=== PATIENT | male | born 1950 | race Caucasian/White ===

== ENCOUNTER 2017-03-27 08:53 | Emergency (ER) | payer MEDICARE, BC ==
[2017-03-27 09:25] VITALS: BP 124/69
--- NOTE | 2017-03-27 10:38 | CT ---
Abdomen Pelvis wo Cont Total DLP 1379 mGycm. INDICATION: left flank and left groin pain COMPARISON: CT 07/15/2010 FINDINGS: Small scattered air cysts in the lung bases. The cecum is in the right mid abdomen. Normal appendix. Fatty infiltration of the liver. No renal, ureteral, or bladder calculi. Tiny fat-containin g periumbilical hernia. Fat-containing right inguinal hernia. Moderate amount of stool throughout the colon. Degenerative changes in the spine. Exam otherwise unremarkable. IMPRESSION: No acute findings in the abdomen or pelvis
--- NOTE | 2017-03-27 10:53 | EDM.PDOC ---
ED HPI GENERAL MEDICAL PROBLEM - General Chief Complaint: Genitourinary Problem Stated Complaint: KIDNEY STONE SYMPTOMS Time Seen by Provider: 03/27/17 09:25 Source of Information: Reports: Patient, Family History Limitations: Reports: No Limitations - History of Present Illness INITIAL COMMENTS - FREE TEXT/NARRATIVE: pt arrived with pain in the left flank that started this weekend and now is much better. It was very severe but starting last nite is much better. Onset: Gradual Duration: Day(s): Location: Reports: Abdomen Associated Symptoms: Reports: Other ( severe left flank pain which has now gotten better. ) Left Flank Pain Score (Numeric/FACES): 3 - Related Data Allergies Allergy/AdvReac Type Severity Reaction Status Date / Time erythromycin base Allergy Nausea Verified 03/27/17 09:09 [From Erythrocin] Home Meds: Home Meds Aspirin 1,300 mg PO DAILY 03/27/17 [History] Metoprolol Succinate [Toprol XL] 1 tab PO DAILY 03/27/17 [History] PARoxetine [Paxil] 10 mg PO DAILY 03/27/17 [History] Past Medical History HEENT History: Reports: Impaired Vision Cardiovascular History: Reports: Arrhythmia Genitourinary History: Reports: Other (See Below) Other Genitourinary History: possible stone r side 8 years ago Musculoskeletal History: Reports: Osteoarthritis Psychiatric History: Reports: OCD - Infectious Disease History Infectious Disease History: Reports: Chicken Pox, Measles, Mumps - Past Surgical History HEENT Surgical History: Reports: Cataract Surgery, Other (See Below) Other HEENT Surgeries/Procedures: lens r eye GI Surgical History: Reports: Colonoscopy, Polypectomy Musculoskeletal Surgical History: Reports: Other (See Below) Other Musculoskeletal Surgeries/Procedures:: Disc surgery 1998 Social & Family History - Tobacco Use Smoking Status *Q: Never Smoker Second Hand Smoke Exposure: No - Caffeine Use Caffeine Use: Reports: Coffee, Tea - Recreational Drug Use Recreational Drug Use: No ED ROS GENERAL - Review of Systems Review Of Systems: See Below Constitutional: Reports: No Symptoms HEENT: Reports: No Symptoms Respiratory: Reports: No Symptoms Cardiovascular: Reports: No Symptoms Endocrine: Reports: No Symptoms GI/Abdominal: Reports: Abdominal Pain, Other ( left flank pain. ) : Reports: No Symptoms Musculoskeletal: Reports: Other ( left flank pain. ) Skin: Reports: No Symptoms ED EXAM, GI/ABD - Physical Exam Exam: See Below Text/Narrative:: pt arrived with left cva pain. he has had 3 days of pain and is now quite comfortable. General Appearance: Alert, Mild Distress, Other (pt is having very minor groin pain. He would rate it a 2. ) Ears: Normal TMs Nose: Normal Inspection Throat/Mouth: Normal Inspection Head: Atraumatic Neck: Normal Inspection Respiratory/Chest: No Respiratory Distress Cardiovascular: Regular Rate, Rhythm GI/Abdominal Exam: Soft, Non-Tender (Male) Exam: Deferred Rectal (Males) Exam: Deferred Extremities: Normal Inspection Neurological: Alert, Oriented, Normal Cognition Psychiatric: Normal Affect Course - Vital Signs Last Recorded V/S: Last Vital Signs Temp 36.2 C 03/27/17 09:23 Pulse 69 03/27/17 09:23 Resp 16 03/27/17 09:23 BP 124/69 03/27/17 09:23 Pulse Ox 98 03/27/17 09:23 - Orders/Labs/Meds Labs: Laboratory Tests 03/27/17 03/27/17 03/27/17 Range/Units 09:24 09:24 09:27 WBC 7.2 (4.5-11.0) K/uL RBC 5.17 (4.30-5.90) M/uL Hgb 15.6 H (12.0-15.0) g/dL Hct 46.2 (40.0-54.0) % MCV 89 (80-98) fL MCH 30 (27-31) pg MCHC 34 (32-36) % Plt Count 193 (150-400) K/uL Neut % (Auto) 74 H (36-66) % Lymph % (Auto) 17 L (24-44) % [place] % (Auto) 7 H (2-6) % Eos % (Auto) 2 (2-4) % Baso % (Auto) 1 (0-1) % Sodium 139 L (140-148) mmol/L Potassium 3.8 (3.6-5.2) mmol/L Chloride 103 (100-108) mmol/L Carbon Dioxide 26 (21-32) mmol/L Anion Gap 13.8 (5.0-14.0) mmol/L BUN 18 (7-18) mg/dL Creatinine 1.4 H (0.8-1.3) mg/dL Est Cr Clr Drug Dosing 59.45 mL/min Estimated GFR (MDRD) 51 L (>60) Glucose 91 (74-106) mg/dL Calcium 8.2 L (8.5-10.1) mg/dL Total Bilirubin 0.4 (0.2-1.0) mg/dL AST 29 (15-37) U/L ALT 36 (12-78) U/L Alkaline Phosphatase 71 (46-116) U/L Total Protein 8.0 (6.4-8.2) g/dL Albumin 3.8 (3.4-5.0) g/dL Globulin 4.2 H (2.3-3.5) g/dL Albumin/Globulin Ratio 0.9 L (1.2-2.2) Urine Color Yellow Urine Appearance Clear Urine pH 5.0 (4.5-8.0) Ur Specific Ramsey 1.015 (1.008-1.030) Urine Protein Negative (NEGATIVE) mg/dL Urine Glucose (UA) Normal (NEGATIVE) mg/dL Urine Ketones Negative (NEGATIVE) mg/dL Urine Occult Blood Negative (NEGATIVE) Urine Nitrite Negative (NEGAITVE) Urine Bilirubin Negative (NEGATIVE) Urine Urobilinogen Normal (NORMAL) mg/dL Ur Leukocyte Esterase Negative (NEGATIVE) Urine RBC 0-5 (0-5) Urine WBC 0-5 (0-5) Ur Epithelial Cells Not seen Amorphous Sediment Not seen Urine Bacteria Not seen Urine Mucus Few - Re-Assessments/Exams Free Text/Narrative Re-Assessment/Exam: 03/27/17 11:02 pt had normal lab work. the only thing that was off is his creatnine which was 1.4 he had a cat scan of the abdomn pelvis which was normal with no stone present. His urine was clear. He may have passed a small stone and now has minimal pain. Departure - Departure Time of Disposition: 10:52 Disposition: Home, Self-Care 01 Condition: Fair Clinical Impression: Left flank pain - Discharge Information Instructions: Flank Pain, [id number] Referrals: Tom Hayes MD [Primary Care Provider] - Forms: ED Department Discharge Care Plan Goals: push fluids, rtc if pain should become severe.
== END 2017-03-27 11:00 | disposition home or self-care (01) ==
LOC: JP.ED 08:53
DX: R10.9 Unspecified abdominal pain (principal); M19.90 Unspecified osteoarthritis, unspecified site; Z79.82 Long term (current) use of aspirin; Z88.1 Allergy status to other antibiotic agents; Z90.89 Acquired absence of other organs
CPT/HCPCS: 36415; 74176; 74176-26; 80053; 81001; 85025; 99283; 99284-25

== ENCOUNTER 2019-05-11 07:59 | Emergency (ER) | payer MEDICARE, BC ==
[2019-05-11 08:19] VITALS: BP 139/68; PULSE 85
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
== END 2019-05-11 08:59 | disposition home or self-care (01) ==
LOC: JP.ED 07:59
DX: J40 Bronchitis, not specified as acute or chronic (principal); Z88.1 Allergy status to other antibiotic agents; Z88.8 Allergy status to other drugs, medicaments and biological substances; Z79.82 Long term (current) use of aspirin
CPT/HCPCS: 99282

== ENCOUNTER 2024-03-30 10:37 | Emergency (ER) | payer MEDICARE, BC ==
[2024-03-30 12:25] LABS: BASOPHILS PERCENT AUTO 0.3 % (0.1-1.3); EOSINOPHILS ABSOLUTE AUTO 0.12 K/uL (0.00-0.40); EOSINOPHILS PERCENT AUTO 1.6 % (0.0-5.4); HEMATOCRIT 27.2 % (38.4-49.7); HEMOGLOBIN 9.8 g/dL (12.9-16.9); IMMATURE GRAN PERCENT AUTO 0.3 % (0.0-0.7); LYMPHOCYTES ABSOLUTE AUTO 1.04 K/uL (0.8-3.3); LYMPHOCYTES PERCENT AUTO 14.1 % (11.4-47.7); MEAN CORPUSCULAR HEMOGLOBIN 30.4 pg (31.6-35.5); MEAN CORPUSCULAR VOLUME 84.5 fL (81.4-99.0); MONOCYTES ABSOLUTE AUTO 1.53 K/uL (0.20-0.90); MONOCYTES PERCENT AUTO 20.7 % (3.3-12.6); NEUTROPHILS ABSOLUTE AUTO 4.66 K/uL (1.0-7.6); PLATELET COUNT,PLT 138 K/uL (130-375); RED BLOOD CELL COUNT 3.22 M/uL (4.14-5.76); WHITE BLOOD CELL COUNT,WBC 7.4 K/uL (3.2-11.0)
[2024-03-30 12:27] LABS: BASOPHILS ABSOLUTE AUTO 0.02 K/uL (0.00-0.10); IMMATURE GRAN ABSOLUTE AUTO 0.02 K/uL (0.00-0.23)
[2024-03-30 12:45] LABS: A/G RATIO 0.8 (1.2-2.2); ALANINE AMINOTRANSFERASE,ALT 73 U/L (12-78); ALBUMIN 3.6 g/dL (3.4-5.0); ALKALINE PHOSPHATASE 126 U/L (46-116); ASPARTATE AMNIOTRANSFERASE,AST 53 U/L (15-37); BILIRUBIN TOTAL 0.8 mg/dL (0.2-1.0); BLOOD UREA NITROGEN,BUN 33 mg/dL (7-18); CALCIUM 9.1 mg/dL (8.5-10.1); CARBON DIOXIDE,CO2 21 mmol/L (21-32); CHLORIDE,CL 94 mmol/L (100-108); EST CRCL DRUG DOSING (CG) 20.94 mL/min; ESTIMATED GFR 18 mL/min (>60); GLUCOSE RANDOM 114 mg/dL (74-106); PROTEIN TOTAL,TP 7.9 g/dL (6.4-8.2); SODIUM,NA 127 mmol/L (140-148)
[2024-03-30 12:50] LABS: CREATININE 3.5 mg/dL (0.8-1.3)
[2024-03-30] MEDS: Sodium Chloride 0.9% 1,000 ML IV ONE (13:03)
[2024-03-30] MEDS: Sodium Chloride 0.9% 1,000 ML IV SCH (14:45)
[2024-03-30 15:10] LABS: APPEARANCE,URINE CLEAR (CLEAR); BILIRUBIN,URINE NEGATIVE (NEGATIVE); COLOR,URINE YELLOW (YELLOW); GLUCOSE,URINE NEGATIVE (NEGATIVE); KETONES,URINE NEGATIVE (NEGATIVE); LEUKOCYTE ESTERASE,URINE NEGATIVE (NEGATIVE); NITRITE,URINE NEGATIVE (NEGATIVE); OCCULT BLOOD,URINE NEGATIVE (NEGATIVE); PROTEIN,URINE 30 mg/dL (NEGATIVE); UROBILINOGEN,URINE 0.2 EU/dL (0.2-1.0)
[2024-03-30 15:17] LABS: BACTERIA,URINE NOT SEEN; EPITHELIAL CELLS,URINE NOT SEEN; RBC,URINE NOT SEEN (0-5); WBC,URINE 0-5 (0-5)
[2024-03-30 15:18] LABS: AMORPHOUS SEDIMENT,URINE FEW; MUCUS,URINE NOT SEEN
[2024-03-30 17:14] LABS: CALCIUM 8.5 mg/dL (8.5-10.1); CREATININE 3.3 mg/dL (0.8-1.3); EST CRCL DRUG DOSING (CG) 22.21 mL/min; POTASSIUM,K 3.9 mmol/L (3.6-5.2)
[2024-03-30 17:22] LABS: ANION GAP 16.9 mmol/L (5.0-14.0)
[2024-03-30 17:31] VITALS: BP 109/53; PULSE 97
== END 2024-03-30 18:24 | disposition home or self-care (01) ==
LOC: JP.ED 10:37
DX: E87.1 Hypo-osmolality and hyponatremia (principal); N17.9 Acute kidney failure, unspecified; N18.9 Chronic kidney disease, unspecified; Z79.899 Other long term (current) drug therapy; Z88.1 Allergy status to other antibiotic agents; Z88.8 Allergy status to other drugs, medicaments and biological substances
CPT/HCPCS: 36415; 80048; 80053; 81001; 85025; 96360; 96361; 99284; J7030

== ENCOUNTER 2024-04-01 14:41 | Emergency (ER) | payer MEDICARE, BC ==
[2024-04-01] MEDS: Sodium Chloride 0.9% 1,000 ML IV ONE ×2 (16:18→17:24)
[2024-04-01 18:57] LABS: CALCIUM 8.5 mg/dL (8.5-10.1); CREATININE 3.3 mg/dL (0.8-1.3); EST CRCL DRUG DOSING (CG) 22.21 mL/min; POTASSIUM,K 4.1 mmol/L (3.6-5.2)
[2024-04-01 18:58] LABS: ANION GAP 16.1 mmol/L (5.0-14.0)
[2024-04-01 19:05] LABS: APPEARANCE,URINE CLEAR (CLEAR); BILIRUBIN,URINE NEGATIVE (NEGATIVE); COLOR,URINE YELLOW (YELLOW); GLUCOSE,URINE NEGATIVE (NEGATIVE); KETONES,URINE NEGATIVE (NEGATIVE); LEUKOCYTE ESTERASE,URINE NEGATIVE (NEGATIVE); NITRITE,URINE NEGATIVE (NEGATIVE); OCCULT BLOOD,URINE TRACE-INTACT (NEGATIVE); PROTEIN,URINE NEGATIVE (NEGATIVE); UROBILINOGEN,URINE 0.2 EU/dL (0.2-1.0)
[2024-04-01 19:37] LABS: AMORPHOUS SEDIMENT,URINE OCCASIONAL; BACTERIA,URINE NOT SEEN; EPITHELIAL CELLS,URINE NOT SEEN; MUCUS,URINE NOT SEEN; RBC,URINE NOT SEEN (0-5); WBC,URINE NOT SEEN (0-5)
[2024-04-01 19:59] VITALS: BP 102/54; PULSE 65
== END 2024-04-01 20:18 | disposition home or self-care (01) ==
LOC: JP.ED 14:41
DX: N17.9 Acute kidney failure, unspecified (principal); E86.0 Dehydration; Z79.899 Other long term (current) drug therapy; Z88.1 Allergy status to other antibiotic agents; Z88.8 Allergy status to other drugs, medicaments and biological substances
CPT/HCPCS: 36415; 80048; 81001; 82570; 84300; 96360; 96361; 99283; J7030

== ENCOUNTER 2024-05-12 12:39 | Inpatient (IN) | payer MEDICARE, BC ==
[2024-05-12] MEDS: Sodium Chloride 0.9% 1,000 ML IV SCH (16:34)
[2024-05-12] MEDS: Prochlorperazine 10 MG Tab PO ONE (18:22)
[2024-05-12] MEDS: Atropine/Diphenoxylate 0.025-2.5 MG Tab PO ONE (18:49)
[2024-05-12] MEDS ORDERED: Ondansetron 4 MG/2 ML SDV IV PRN (19:39)
[2024-05-12] MEDS ORDERED: Atropine/Diphenoxylate 0.025-2.5 MG Tab PO PRN (19:39)
[2024-05-12] MEDS ORDERED: Acetaminophen 325 MG Tab PO PRN (19:39)
[2024-05-12] MEDS ORDERED: Ondansetron 4 MG Tab.DIS PO PRN (19:39)
[2024-05-12] MEDS: Acetaminophen/Codeine 300-30 MG Tab PO SCH (20:43)
[2024-05-12] MEDS: Loperamide 2 MG Cap PO PRN ×2 (20:43→22:17)
[2024-05-13 00:23] LABS: APPEARANCE,URINE CLEAR (CLEAR); BILIRUBIN,URINE NEGATIVE (NEGATIVE); COLOR,URINE YELLOW (YELLOW); GLUCOSE,URINE NEGATIVE (NEGATIVE); KETONES,URINE NEGATIVE (NEGATIVE); LEUKOCYTE ESTERASE,URINE NEGATIVE (NEGATIVE); NITRITE,URINE NEGATIVE (NEGATIVE); OCCULT BLOOD,URINE NEGATIVE (NEGATIVE); PH,URINE 5.5 (5.0-8.0); PROTEIN,URINE NEGATIVE (NEGATIVE); UROBILINOGEN,URINE 0.2 EU/dL (0.2-1.0)
[2024-05-13 00:33] LABS: AMORPHOUS SEDIMENT,URINE NOT SEEN; BACTERIA,URINE RARE; EPITHELIAL CELLS,URINE NOT SEEN; MUCUS,URINE NOT SEEN; RBC,URINE 0-5 (0-5); WBC,URINE 0-5 (0-5)
[2024-05-13 06:25] LABS: CALCIUM 9.5 mg/dL (8.5-10.1); CREATININE 2.6 mg/dL (0.8-1.3); EST CRCL DRUG DOSING (CG) 28.19 mL/min; POTASSIUM,K 4.5 mmol/L (3.6-5.2)
[2024-05-13 06:33] LABS: ANION GAP 16.5 mmol/L (5.0-14.0)
[2024-05-13] MEDS: Metoprolol Succinate 25 MG Tab.ER PO SCH (08:00)
[2024-05-13] MEDS: Calcium Carbonate 500 MG Tab.Chew PO SCH (08:00)
[2024-05-13] MEDS: Pantoprazole 40 MG Tab.CR PO SCH (08:00)
[2024-05-13] MEDS: PARoxetine 20 MG Tab PO SCH (08:00)
[2024-05-13] MEDS ORDERED: Sodium Chloride 0.9% 10 ML Syringe IV PRN (10:27)
[2024-05-13 11:15] VITALS: BP 105/69; PULSE 72
[2024-05-13 14:14] LABS: CALCIUM 9.3 mg/dL (8.5-10.1); CREATININE 2.5 mg/dL (0.8-1.3); EST CRCL DRUG DOSING (CG) 29.32 mL/min; POTASSIUM,K 4.3 mmol/L (3.6-5.2)
[2024-05-13 14:15] LABS: ANION GAP 16.3 mmol/L (5.0-14.0)
== END 2024-05-13 13:05 | disposition home or self-care (01) | DRG 641 ==
LOC: JP.ED 12:39 → JP.MS 16:32
PROVIDERS: ADMIT Internal Medicine; ATTEND Hospitalist
DX: E87.1 Hypo-osmolality and hyponatremia (principal); C18.9 Malignant neoplasm of colon, unspecified; D84.9 Immunodeficiency, unspecified; N18.4 Chronic kidney disease, stage 4 (severe); H54.7 Unspecified visual loss; M19.90 Unspecified osteoarthritis, unspecified site; R19.8 Other specified symptoms and signs involving the digestive system and abdomen; J44.9 Chronic obstructive pulmonary disease, unspecified; Z93.2 Ileostomy status; Z85.038 Personal history of other malignant neoplasm of large intestine; Z86.16 Personal history of COVID-19; Z87.81 Personal history of (healed) traumatic fracture; Z79.899 Other long term (current) drug therapy; Z98.49 Cataract extraction status, unspecified eye; Z98.890 Other specified postprocedural states; Z88.1 Allergy status to other antibiotic agents; Z88.8 Allergy status to other drugs, medicaments and biological substances
CPT/HCPCS: 36415; 80048; 81001; 84295; 84300; 99222; 99239; 99285; A9270-GY; J1642; J7030; Q0164

== ENCOUNTER 2024-08-10 10:18 | Emergency (ER) | payer MEDICARE, BC ==
[2024-08-10] MEDS: Sodium Chloride 0.9% 1,000 ML IV ONE ×2 (13:36→14:36)
[2024-08-10 13:41] LABS: BASOPHILS ABSOLUTE AUTO 0.03 K/uL (0.00-0.10); BASOPHILS PERCENT AUTO 0.6 % (0.1-1.3); EOSINOPHILS ABSOLUTE AUTO 0.13 K/uL (0.00-0.40); EOSINOPHILS PERCENT AUTO 2.7 % (0.0-5.4); HEMATOCRIT 34.8 % (38.4-49.7); IMMATURE GRAN PERCENT AUTO 0.2 % (0.0-0.7); LYMPHOCYTES ABSOLUTE AUTO 0.75 K/uL (0.8-3.3); LYMPHOCYTES PERCENT AUTO 15.4 % (11.4-47.7); MEAN CORPUSCULAR HEMOGLOBIN 32.6 pg (31.6-35.5); MEAN CORPUSCULAR HGB CONC 34.5 g/dL (31.6-35.5); MEAN CORPUSCULAR VOLUME 94.6 fL (81.4-99.0); MONOCYTES ABSOLUTE AUTO 0.83 K/uL (0.20-0.90); NEUTROPHILS ABSOLUTE AUTO 3.13 K/uL (1.0-7.6); NEUTROPHILS PERCENT AUTO 64.1 % (40.0-78.1); PLATELET COUNT,PLT 192 K/uL (130-375); RED BLOOD CELL COUNT 3.68 M/uL (4.14-5.76); WHITE BLOOD CELL COUNT,WBC 4.9 K/uL (3.2-11.0)
[2024-08-10 13:43] LABS: IMMATURE GRAN ABSOLUTE AUTO 0.01 K/uL (0.00-0.23)
[2024-08-10 14:02] LABS: A/G RATIO 0.9 (1.2-2.2); ALANINE AMINOTRANSFERASE,ALT 35 U/L (12-78); ALKALINE PHOSPHATASE 120 U/L (46-116); ASPARTATE AMNIOTRANSFERASE,AST 30 U/L (15-37); BILIRUBIN TOTAL 0.5 mg/dL (0.2-1.0); BLOOD UREA NITROGEN,BUN 18 mg/dL (7-18); CALCIUM 9.1 mg/dL (8.5-10.1); CARBON DIOXIDE,CO2 19 mmol/L (21-32); CHLORIDE,CL 102 mmol/L (100-108); CREATININE 2.7 mg/dL (0.8-1.3); ESTIMATED GFR 24 mL/min (>60); GLUCOSE RANDOM 105 mg/dL (74-106); POTASSIUM,K 4.1 mmol/L (3.6-5.2); PROTEIN TOTAL,TP 8.5 g/dL (6.4-8.2); SODIUM,NA 135 mmol/L (140-148)
[2024-08-10 14:03] LABS: ANION GAP 18.1 mmol/L (5.0-14.0)
[2024-08-10 15:45] VITALS: BP 119/62; PULSE 62
== END 2024-08-10 16:07 | disposition home or self-care (01) ==
LOC: JP.ED 10:18
DX: E86.0 Dehydration (principal); Z93.2 Ileostomy status; Z86.16 Personal history of COVID-19; Z79.899 Other long term (current) drug therapy; Z88.1 Allergy status to other antibiotic agents; Z88.8 Allergy status to other drugs, medicaments and biological substances
CPT/HCPCS: 36415; 80053; 83735; 85025; 96360; 96361; 99284; J7030